=== PATIENT | female | born 1945 | race Caucasian/White ===

== ENCOUNTER 2017-08-22 23:39 | Inpatient (IN) | payer MEDICARE, MEDICAID ==
[2017-08-23] MEDS ORDERED: methylPREDNISolone Sod Succ/PF 125 MG/2 ML VIAL ONE
[2017-08-23] MEDS ORDERED: Water For Inject, Bacteriostat 30 ML ONE
[2017-08-23 00:13] LABS: CO2 Tension 50.6 mmHg (35.0-45.0); pH, Arterial 7.31 (7.35-7.45)
[2017-08-23 00:14] LABS: Base Excess (BEa) -1.7 mEq/L (0 (+/-) 2.5); Hematocrit-ABG 38.2 % (36.0-47.0); Hemoglobin (Hb) 11.4 g/dL (12.0-16.0)
[2017-08-23 00:15] LABS: Analyzer IN Cardio ER; Calcium, Ionized 1.2 mmol/L (1.12-1.30); Puncture Site RBA
[2017-08-23 00:29] LABS: Band 16 % (5-11); Hemoglobin 11.3 g/dL (12.0-16.0); Lymphocytes 13 % (21-51); MDiff Complete? YES; Mean Corpuscular HGB CONC 30.8 g/dL (32.0-36.0); Mean Corpuscular Hemoglobin 29.2 pg (27.0-31.0); Mean Corpuscular Volume 94.8 fl (81.0-99.0); Mean Platelet Volume 7.2 fL (7.4-10.4); Monocytes 3 % (0-10); Neutrophil 68 % (42-75); PLT Morphology Comment Appears Adequate; Platelet Count 447 thou/uL (130-400); RBC Distribution Width 13.9 % (11.5-14.5); Red Blood Cell (RBC) Count 3.88 mill/uL (4.20-5.40); White Blood Cell (WBC) Count 21.5 thou/uL (4.8-10.8)
[2017-08-23 00:32] LABS: ALT (SGPT) 12 U/L (8-55); AST (SGOT) 19 U/L (5-34); Albumin 3.8 g/dL (3.4-4.8); Alkaline Phosphatase 179 U/L (40-150); Anion Gap 15 mmol/L (10-20); BUN (Urea Nitrogen) 23 mg/dL (9.8-20.1); Bilirubin, Total 0.4 mg/dL (0.2-1.2); CK (CPK) 28 U/L (29-168); Calc. Creatinine Clearance 0 mL/min (70-130); Calcium 9.2 mg/dL (7.8-10.44); Carbon Dioxide 24 mmol/L (23-31); Chloride 109 mmol/L (98-107); Estimated GFR-MDRD 45; Globulin 4.4 g/dL (2.4-3.5); Glucose 154 mg/dL (80-115); Potassium 4.3 mmol/L (3.5-5.1); Protein, Total 8.2 g/dL (6.0-8.3); Sodium 144 mmol/L (136-145)
[2017-08-23 00:37] LABS: CKMB 0.8 ng/mL (0-6.6)
[2017-08-23] MEDS ORDERED: Albuterol Sulfate 2.5 mg/3 ml Neb NEB PRN (01:00)
[2017-08-23] MEDS ORDERED: Milk Of Magnesia 30 ML UDCUP PO PRN (01:05)
[2017-08-23] MEDS ORDERED: Azithromycin 500 MG in Sodium Chloride 0.9% 250 ML 250 ML IVPB SCH (01:15)
[2017-08-23] MEDS ORDERED: cefTRIAXone\\ROCEPHIN 2 GM in Sodium Chloride 0.9% 100 ML IVPB SCH (01:15)
--- NOTE | 2017-08-23 02:23 | HP ---
PRIMARY CARE PHYSICIAN: Dr. Frey. PRESENTING COMPLAINT: Shortness of breath. HISTORY OF PRESENT ILLNESS: Ms. King Larsen is a 72-year-old female with a past medical history of diastolic congestive heart failure, chronic dyspnea on home oxygen, morbid obesity, hyperlipidemia. She presented to the hospital with 2-day history of shortness of breath and cough productive of whitish sputum. It is unsure if she had a fever, but reports no chills. There is no history of chest pain, palpitation. She has been off all her medications for the past month due to transportation issues. She has also not been using her home oxygen as prescribed. She stated that she has weaned herself off to using it nightly, although has not used it for some time now. There is no history of nausea, vomiting, chest pain, palpitation, diarrhea. She has no abdominal or urinary symptoms. She was found to be saturating at 55% oxygen on room air in the emergency room. She was immediately placed on BiPAP. Lab showed leukocytosis of 21,500. Chemistry showed BUN/creatinine of 23/1.9 seems to be patient's baseline. Troponin was 0.010. BNP was 102.8. ABG showed pH of 7.31 with pCO2 of 50.6 and pO2 of 150 on BiPAP. Blood cultures were taken and patient was started on IV ceftriaxone and azithromycin, where after chest x-ray showed infiltrates in the long. PAST MEDICAL HISTORY: Diastolic heart failure, chronic dyspnea, morbid obesity, hyperlipidemia. PAST SURGICAL HISTORY: 1. Status post hysterectomy. 2. Status post hernia repair. ALLERGIES: None. FAMILY HISTORY: Reviewed and noncontributory. SOCIAL HISTORY: Does not drink alcohol, smoke cigarettes, or use illicit drugs. HOME MEDICATIONS: Reviewed and ordered. REVIEW OF SYSTEMS: Constitutional: Negative. Skin: Negative. HEENT: Negative. Cardiovascular: Negative. Respiratory: Shortness of breath, wheezing, cough. Gastrointestinal: Negative. : Negative. Musculoskeletal: Negative. Neurologic: Negative. Psychiatric: Negative. Allergy/immunology: Negative. PHYSICAL EXAMINATION: VITAL SIGNS: Within normal limits. GENERAL: Not in acute distress on BiPAP. HEENT: PERRLA, EOMI. Normocephalic, atraumatic. Not pale, anicteric. Moist mucous membranes. NECK: Supple with no JVD. Has full range of movements. RESPIRATORY: Coarse breath sounds bilaterally with mild wheezing. No crackles. EXTREMITIES: Warm, dry, well perfused. Poor nail care, with significant nail overgrowth. ABDOMEN: Nontender, nondistended. Bowel sounds positive, soft. No hepatomegaly. NEUROLOGIC: Alert and awake, oriented to time, place, and person. No focal deficits. CARDIAC: S1 and S2 only. No murmurs, rubs or gallops. Regular rate and rhythm. PSYCHIATRIC: Normal mood and affect. SKIN: Warm, dry, well-perfused. LABORATORY DATA: As stated in HPI. IMAGING: As stated in the HPI. EKG showed no signs of acute ischemia. ASSESSMENT AND PLAN: 1. Acute on chronic respiratory failure, this is likely due to underlying pneumonia. She has been started on IV ceftriaxone and azithromycin. Blood cultures have been taken. We will continue on BiPAP and eventually transitioned to her home nasal cannula. We will also consult Pulmonary Service. Follow up on blood cultures. We will also start on IV Solu-Medrol and nebulizers. 2. Pneumonia as above. 3. Chronic diastolic heart failure. She is not in acute exacerbation, even though she has not taken her medications for a month, we will resume her home regimen. 4. Hypertension. Blood pressure relatively well controlled. Blood pressure 152/95 in the emergency room. We will start home medications gradually. 5. Hyperlipidemia. We will resume home medications. 6. Chronic kidney disease. Patient seems to be at her baseline, we will monitor creatinine closely. 7. Deep venous thrombosis prophylaxis, subcutaneous heparin. 8. Code status was FULL CODE. MTDD
[2017-08-23 03:54] VITALS: BMI 49.2
[2017-08-23 04:07] LABS: #Basophils 0.2 thou/uL (0.0-0.2); #Lymphocytes 0.4 thou/uL (1.20-3.40); #Monocytes 0.3 thou/uL (0.11-0.59); #Neutrophils 17.2 thou/uL (1.40-6.50); %Basophils 1.2 % (0.0-1.0); %Eosinophils 0.2 % (0.0-10.0); %Lymphocytes 2.2 % (21.0-51.0); %Monocytes 1.6 % (0.0-10.0); %Neutrophils 94.9 % (42.0-75.0); Hemoglobin 10.8 g/dL (12.0-16.0); Mean Corpuscular HGB CONC 31.2 g/dL (32.0-36.0); Mean Corpuscular Hemoglobin 29.6 pg (27.0-31.0); Mean Corpuscular Volume 95.2 fl (81.0-99.0); Mean Platelet Volume 7.2 fL (7.4-10.4); Platelet Count 388 thou/uL (130-400); RBC Distribution Width 13.7 % (11.5-14.5); Red Blood Cell (RBC) Count 3.64 mill/uL (4.20-5.40); White Blood Cell (WBC) Count 18.1 thou/uL (4.8-10.8)
[2017-08-23 04:27] LABS: Lactic Acid 0.7 mmol/L (0.5-2.2)
[2017-08-23 04:31] LABS: ALT (SGPT) 12 U/L (8-55); AST (SGOT) 17 U/L (5-34); Albumin 3.4 g/dL (3.4-4.8); Alkaline Phosphatase 155 U/L (40-150); Anion Gap 13 mmol/L (10-20); BUN (Urea Nitrogen) 25 mg/dL (9.8-20.1); Bilirubin, Total 0.3 mg/dL (0.2-1.2); Calc. Creatinine Clearance 93 mL/min (70-130); Calcium 8.8 mg/dL (7.8-10.44); Carbon Dioxide 23 mmol/L (23-31); Chloride 110 mmol/L (98-107); Estimated GFR-MDRD 52; Globulin 4.1 g/dL (2.4-3.5); Glucose 155 mg/dL (80-115); Potassium 4.6 mmol/L (3.5-5.1); Protein, Total 7.5 g/dL (6.0-8.3); Sodium 141 mmol/L (136-145)
--- NOTE | 2017-08-23 07:46 | RAD ---
AP VIEW CHEST: Date: 08/22/17 HISTORY: Dyspnea. FINDINGS: Comparison made to previous exam from 12/31/16. AP view of chest demonstrates EKG leads over the chest. Mild cardiomegaly is seen. Pulmonary vascular congestion seen. No evidence of effusions, pneumonia, or pneumothorax seen. IMPRESSION: Cardiomegaly and mild pulmonary vascular congestion. POS: [facility]
[2017-08-23] MEDS: Docusate 100 MG CAP PO SCH ×2 (08:40→21:42)
[2017-08-23] MEDS: Famotidine 20 MG TAB PO SCH ×2 (08:40→21:42)
[2017-08-23] MEDS ORDERED: FLU VACC TS2017-18 (>65YR) 0.5 ML SYRINGE IM ONE (09:00)
[2017-08-23] MEDS ORDERED: Enoxaparin Sodium 30 MG/0.3 ML SYRINGE SC SCH ×2 (09:00→09:32)
--- NOTE | 2017-08-23 10:12 | CON ---
DATE OF CONSULTATION: 08/23/2017 HISTORY: Ms. Richter is a morbidly obese 72-year-old female from [facility] who comes with a 10 day history of increasing shortness of breath and cough. She is unable to give addit ional information. Denied any chest pain. She was here in December of last year with some rib pain. She has a diagnosis of congestive heart failure. She just got a new primary care physician. She is severely disabled, uses a walker to barely walk 20 feet. She had a last ejection fraction down to 60% and findings consistent with diastolic dysfunction. PAST MEDICAL HISTORY: Morbid obesity, anemia, chronic dyspnea. Diastolic dysfunction. PAST SURGICAL HISTORY: Hysterectomy, hernia repair. TOBACCO: None. ALCOHOL: None. MEDICATIONS: The list of medicine from home; Lasix 20, iron, Lipitor 20, aspirin 81, amlodipine 5. ALLERGIES: None. SOCIAL/FAMILY HISTORY: She worked in [employer]. REVIEW OF SYSTEMS: Ten point negative. Please note old x-ray reports, old charts were reviewed by me. Since admission now she is started on Zithromax, ceftriaxone, Lovenox, neb treatments and steroids. PHYSICAL EXAMINATION: VITAL SIGNS: Sats are 100% on 2 liters. She was on BiPAP earlier, temperature 99, pulse 67, blood p ressure 120/42. CHEST: Chest revealed extensive rhonchi and crackles. CARDIAC: Normal S1, S2, no gallops. ABDOMEN: Soft, no masses. LABORATORY DATA: White count 18,000, H&H 10 and 34, platelet count 388, pO2 150, pCO2 50.73 on a BiP AP. Creatinine is normal. BUN is normal. Electrolytes are normal. BNP is 102. X-ray was surprisingly normal with slight cephalization. IMPRESSION: 1. Chronic obstructive pulmonary disease exacerbation. 2. Bronchitis. 3. Nonsmoker. 4. Diastolic dysfunction. 5. Morbid obesity. 6. Sleep apnea. PLAN: Continue antibiotics, nebulizer treatments, steroids, diuretics. Echo is being ordered. Deep venous thrombosis prophylaxis, early ambulation. I will follow. Consultation note, 70 minutes of which 50% spent in the direct patient care.
--- NOTE | 2017-08-23 11:25 | PQF ---
DATE: 08-23-17 ATTN: DR. DOLORES PARKER Please exercise your independent, professional judgment in responding to the clarification form. Clinical indicators are provided on the bottom of this form for your review Please check appropriate box(es): [ ] Sepsis due to: (Pna, etc.) [ x ] Severe sepsis with acute organ dysfunction of: ___acute on chronic hypoexmic resp failure, due to pulm infection, cannot exclude pna yet (Examples: respiratory failure, other) [ ] Other diagnosis [ ] Unable to determine In addition, please specify: Present on Admission (POA): [ x ] Yes [ ] No [ ] Unable to determine For continuity of documentation, please document condition throughout progress notes and discharge summary. Thank You. CLINICAL INDICATORS - SIGNS / SYMPTOMS / LABS H&P: ACUTE ON CHRONIC RESPIRATORY FAILURE, THIS IS LIKELY DUE TO UNDERLYING PNEUMONIA WBC: 08-22-17: 21.5 08-23-17: 18.1 BANDS: 08-22-17: 16 TEMP: 08-23-17: 100.4, 100.4, 99.7 RR: 08-23-17: 22, 22, 21 RISK FACTORS: H&P: ACUTE ON CHRONIC RESPIRATORY FAILURE, THIS IS LIKELY DUE TO UNDERLYING PNEUMONIA ADVANCED AGE TREATMENTS: (MAR) ROCEPHIN IV, ZITHROMAX (This form is maintained as a part of the permanent medical record) 2014 [employer]. All Rights Reserved ROZINA [email or web address] Office: [phone] [facility] CENTERIvory
[2017-08-23] MEDS: Acetaminophen 325 MG TAB PO PRN (19:18)
[2017-08-24 04:39] LABS: #Lymphocytes 1.3 thou/uL (1.20-3.40); #Monocytes 0.2 thou/uL (0.11-0.59); #Neutrophils 9.7 thou/uL (1.40-6.50); %Basophils 0.2 % (0.0-1.0); %Eosinophils 0.1 % (0.0-10.0); %Lymphocytes 11.3 % (21.0-51.0); %Monocytes 2.1 % (0.0-10.0); %Neutrophils 86.2 % (42.0-75.0); Hemoglobin 9.7 g/dL (12.0-16.0); Mean Corpuscular HGB CONC 31.2 g/dL (32.0-36.0); Mean Corpuscular Hemoglobin 29.8 pg (27.0-31.0); Mean Corpuscular Volume 95.7 fl (81.0-99.0); Mean Platelet Volume 7.6 fL (7.4-10.4); Platelet Count 371 thou/uL (130-400); RBC Distribution Width 13.5 % (11.5-14.5); Red Blood Cell (RBC) Count 3.24 mill/uL (4.20-5.40); White Blood Cell (WBC) Count 11.2 thou/uL (4.8-10.8)
[2017-08-24 04:54] LABS: Anion Gap 10 mmol/L (10-20); BUN (Urea Nitrogen) 31 mg/dL (9.8-20.1); Calc. Creatinine Clearance 100 mL/min (70-130); Calcium 8.9 mg/dL (7.8-10.44); Carbon Dioxide 27 mmol/L (23-31); Chloride 110 mmol/L (98-107); Estimated GFR-MDRD 56; Glucose 147 mg/dL (80-115); Magnesium 2.3 mg/dL (1.6-2.6); Potassium 4.6 mmol/L (3.5-5.1); Sodium 142 mmol/L (136-145)
[2017-08-24] MEDS ORDERED: cefTRIAXone\\ROCEPHIN 1 GM in Sterile Water 10 ML SLOW IVP SCH (08:00)
[2017-08-24] MEDS: Famotidine 20 MG TAB PO SCH ×2 (08:41→21:39)
[2017-08-24] MEDS: Docusate 100 MG CAP PO SCH ×2 (08:41→21:39)
[2017-08-24] MEDS: Furosemide 40 MG TAB PO SCH (08:41)
--- NOTE | 2017-08-24 08:52 | PRG ---
DATE OF SERVICE: 08/24/2017 This morning she is less short of breath. PHYSICAL EXAMINATION: VITAL SIGNS: Blood pressure 132/50, sats 90%, temperature 98, respirations 18. I's and O's 1730 in, 125 out. CHEST: Chest revealed bilateral rhonchi. CARDIAC: Normal S1, S2. ABDOMEN: Soft, no masses. IMPRESSION: 1. Morbid obesity. 2. Sleep apnea. 3. Normal ejection fraction. White count 11,000, H&H 9 and 31, platelet count 371. PLAN: Continue aggressive PT, neb treatments, antibiotics. May consider deescalating antibiotics to p.o. since all cultures are negative. I will follow.
[2017-08-24] MEDS ORDERED: Azithromycin 500 MG in Sodium Chloride 0.9% 250 ML 250 ML IVPB SCH (09:00)
--- NOTE | 2017-08-24 12:41 | PDOC.PN ---
- Subjective Encounter Start Date: 08/24/17 Encounter Start Time: 11:40 -: old records requested/rev PT seen and exmained, chart reviewed in its entirety. Thid id my first visit with this patient Admitted for SOB, hypoxia. Pt feels breathing is a little better, still with sig SILVERMAN. no F/C, +cough, nonproductive. no n/v/d/c, too po 10 point ROS performed and neg for all systems except as per HPI - Objective MAR Reviewed: Yes Vital Signs & Weight: Vital Signs (12 hours) Temp Pulse Resp BP Pulse Ox 08/24/17 11:05 98.2 F 70 22 H 136/55 L 100 08/24/17 09:54 65 22 H 100 08/24/17 07:53 96.8 F L 61 18 94 L 08/24/17 07:44 96.8 F L 61 18 132/50 L 96 08/24/17 06:23 59 L 08/24/17 06:21 56 L 21 H 100 08/24/17 03:51 97.8 F 53 L 19 133/50 L 98 08/24/17 01:06 98 08/24/17 01:05 58 L Weight Weight 259 lb 8 oz I&O: 08/23/17 08/24/17 08/25/17 06:59 06:59 06:59 Intake Total 550 1730 Output Total 110 1250 Balance 440 480 Result Diagrams: 08/24/17 03:33 08/24/17 03:33 Radiology Reviewed by me: Yes EKG Reviewed by me: Yes Phys Exam - Physical Examination Constitutional: NAD HEENT: PERRLA, moist MMs, sclera anicteric, oral pharynx no lesions teeth in poor repair Neck: no nodes, no JVD, supple, full ROM prolonged, exp phase, low pitched wheezes, coarse rales diffuse Cardiovascular: RRR 3/g HSM apex and RLSB Gastrointestinal: soft, non-tender, positive bowel sounds cannot palpate internal organs due to habitus Musculoskeletal: edema present Neurological: non-focal, normal sensation, moves all 4 limbs Lymphatic: no nodes Psychiatric: normal affect, A&O x 3 Skin: no rash, normal turgor, cap refill <2 seconds Dx/Plan (1) Valvular heart disease Status: Acute Comment: mof MR, mod to severe TR. recheck BNP in AM, up a liter (2) Acute on chronic respiratory failure with hypoxemia Code(s): J96.21 - ACUTE AND CHRONIC RESPIRATORY FAILURE WITH HYPOXIA Status: Acute Comment: BiPAP QHS for DAREK. wean as tolerated NC during the day. transfer to tele (3) Chronic diastolic (congestive) heart failure Code(s): I50.32 - CHRONIC DIASTOLIC (CONGESTIVE) HEART FAILURE Status: Chronic Comment: AM BNP, watch I/O (4) HTN (hypertension) Code(s): I10 - ESSENTIAL (PRIMARY) HYPERTENSION Status: Chronic Qualifiers: Hypertension type: essential hypertension (5) Morbid obesity with BMI of 50.0-59.9, adult Code(s): E66.01 - MORBID (SEVERE) OBESITY DUE TO EXCESS CALORIES; Z68.43 - BODY MASS INDEX (BMI) 50-59.9 , ADULT Status: Chronic (6) Physical deconditioning Code(s): R53.81 - OTHER MALAISE Status: Chronic - Plan cont current plan of care, continue antibiotics, PT/OT, respiratory therapy, out of bed/ambulate * . nebs, steroids, change to po levoflox. acting more like COPD or cardiac asthma. Pulm following
[2017-08-24] MEDS: Acetaminophen 325 MG TAB PO PRN (16:58)
[2017-08-25 05:21] LABS: #Lymphocytes 0.8 thou/uL (1.20-3.40); #Monocytes 0.5 thou/uL (0.11-0.59); #Neutrophils 13.8 thou/uL (1.40-6.50); %Eosinophils 0.1 % (0.0-10.0); %Lymphocytes 5.5 % (21.0-51.0); %Monocytes 3.1 % (0.0-10.0); %Neutrophils 91.3 % (42.0-75.0); Hemoglobin 10.4 g/dL (12.0-16.0); Mean Corpuscular HGB CONC 30.1 g/dL (32.0-36.0); Mean Corpuscular Hemoglobin 29.4 pg (27.0-31.0); Platelet Count 379 thou/uL (130-400); RBC Distribution Width 13.7 % (11.5-14.5); Red Blood Cell (RBC) Count 3.53 mill/uL (4.20-5.40); White Blood Cell (WBC) Count 15.2 thou/uL (4.8-10.8)
[2017-08-25 05:50] LABS: ALT (SGPT) 11 U/L (8-55); AST (SGOT) 15 U/L (5-34); Albumin 3.2 g/dL (3.4-4.8); Alkaline Phosphatase 123 U/L (40-150); Anion Gap 14 mmol/L (10-20); BUN (Urea Nitrogen) 41 mg/dL (9.8-20.1); Bilirubin, Total 0.2 mg/dL (0.2-1.2); Calc. Creatinine Clearance 84 mL/min (70-130); Calcium 8.9 mg/dL (7.8-10.44); Carbon Dioxide 21 mmol/L (23-31); Chloride 110 mmol/L (98-107); Estimated GFR-MDRD 46; Globulin 3.9 g/dL (2.4-3.5); Glucose 139 mg/dL (80-115); Magnesium 2.3 mg/dL (1.6-2.6); Potassium 4.8 mmol/L (3.5-5.1); Protein, Total 7.1 g/dL (6.0-8.3); Sodium 140 mmol/L (136-145)
[2017-08-25] MEDS: Furosemide 40 MG TAB PO SCH (06:06)
--- NOTE | 2017-08-25 09:30 | RAD ---
CHEST 1 VIEW: Date: 08/25/17 HISTORY: Chest pain. Dyspnea. CHF. COMPARISON: 08/22/17. FINDINGS: Cardiac silhouette is magnified and enlarged. Pulmonary vasculature is slightly engorged. Patient is rotated rightward. No lobar consolidation or evidence of pneumothorax. director sales leads overlie the chest. IMPRESSION: Cardiomegaly with mild pulmonary vascular congestion. POS: [facility]
[2017-08-25] MEDS: Enoxaparin Sodium 40 MG/0.4 ML SYRINGE SC SCH (09:40)
[2017-08-25] MEDS: Docusate 100 MG CAP PO SCH ×2 (09:40→21:52)
[2017-08-25] MEDS: Famotidine 20 MG TAB PO SCH ×2 (09:40→21:52)
[2017-08-25] MEDS ORDERED: Magnesium 2 GM/NS 0.9% 100 ML 2 GM in Premix Bag 1 BAG IVPB SCH (10:00)
--- NOTE | 2017-08-25 12:04 | PRG ---
DATE OF SERVICE: 08/25/2017 Ms. Richter continues to have significant difficulty breathing. X-ray shows some right hilar fullness. She had a CAT scan done about a year ago which was otherwise unremarkable. LABORATORY: Creatinine 1.6. White count 5000, H&H 10 and 35, platelet count is normal. PHYSICAL EXAMINATION: CHEST: Reveals diffuse wheezing. CARDIAC: Sinus tachycardia. ABDOMEN: Soft, no mass. VITAL SIGNS: Sats are 90% on 2 liters, temperature 98, blood pressure 121/73. IMPRESSION: 1. Pneumonia/mass r lung. 2. Bronchitis. 3. Sleep apnea. PLAN: Continue steroids, nebs treatments. I added Dulera. Consider CT of the chest. I will follow. RICHELLED
[2017-08-25] MEDS ORDERED: ISOVUE-370 76%-LOCM 1 ML ONE (13:47)
--- NOTE | 2017-08-25 15:39 | CT ---
CONTRAST ENHANCED CT IMAGES OF CHEST: 08/25/17 HISTORY: Shortness of breath. Evaluate for right lung mass. Contrast enhanced CT of the chest was performed. Mitral annular calcifications seen. No significant evidence of mediastinal, axillary or hilar lymphadenopathy is seen. No evidence of pulmonary parenchymal lesions seen. There does appears to be some bilateral pleural fa t noted. This is unchanged since the previous CT from December 2016. The previously noted ground glass opacities; however, have resolved for the most part or less promine nt in the lung parenchyma. Extensive calcified gallstones are noted. There is a cortical cyst in the left kidney. IMPRESSION: Persistent but decreased ground glass air space opacities. No evidence of lung parenchymal masses see n. POS: [facility]
[2017-08-25] MEDS: Acetaminophen 325 MG TAB PO PRN (16:20)
[2017-08-25] MEDS: Mometasone/Formoterol 120 PUFF INHALER INH SCH (19:14)
--- NOTE | 2017-08-25 22:17 | PDOC.PN ---
- Subjective Encounter Start Date: 08/25/17 Encounter Start Time: 10:30 Pt breathing a little better. did not weat BiPAP overnight due to comfort issues. No f/c, no N/V/D/C, no CP or SOB, no sputum production or hemoptysis 10 point ROS performed and neg for all systems except as per HPI - Objective MAR Reviewed: Yes Vital Signs & Weight: Vital Signs (12 hours) Temp Pulse Resp BP Pulse Ox Pulse Ox Pulse Ox 08/25/17 19:17 96 08/25/17 19:16 96 08/25/17 19:14 96 08/25/17 15:25 98.3 F 102 H 18 161/65 H 96 08/25/17 15:14 97 96 08/25/17 14:32 82 20 08/25/17 10:37 73 18 Weight Weight 261 lb 7 oz I&O: 08/24/17 08/25/17 08/26/17 06:59 06:59 06:59 Intake Total 1730 862 Output Total 1250 700 Balance 480 162 Result Diagrams: 08/26/17 04:58 08/26/17 04:58 Radiology Reviewed by me: Yes Phys Exam - Physical Examination Constitutional: NAD HEENT: PERRLA, moist MMs, sclera anicteric, oral pharynx no lesions Neck: no nodes, no JVD, supple, full ROM less wheezing, diffuse fine rales, better air movement Cardiovascular: RRR, no significant murmur, no rub Gastrointestinal: soft, non-tender, positive bowel sounds Musculoskeletal: edema present Neurological: non-focal, normal sensation, moves all 4 limbs Lymphatic: no nodes Psychiatric: normal affect, A&O x 3 Skin: no rash, normal turgor, cap refill <2 seconds Dx/Plan (1) Valvular heart disease Status: Chronic Comment: mod MR, mod to severe TR. (2) Acute on chronic respiratory failure with hypoxemia Code(s): J96.21 - ACUTE AND CHRONIC RESPIRATORY FAILURE WITH HYPOXIA Status: Acute Comment: BiPAP QHS for DAREK. wean as tolerated NC during the day. transferred to [facility], pul following. CT with improvement in GGO. Abx, nebs, steroids (3) Chronic diastolic (congestive) heart failure Code(s): I50.32 - CHRONIC DIASTOLIC (CONGESTIVE) HEART FAILURE Status: Chronic Comment: watch I/O (4) HTN (hypertension) Code(s): I10 - ESSENTIAL (PRIMARY) HYPERTENSION Status: Chronic Qualifiers: Hypertension type: essential hypertension Qualified Code(s): I10 - Essential (primary) hypertension (5) Morbid obesity with BMI of 50.0-59.9, adult Code(s): E66.01 - MORBID (SEVERE) OBESITY DUE TO EXCESS CALORIES; Z68.43 - BODY MASS INDEX (BMI) 50-59.9 , ADULT Status: Chronic (6) Physical deconditioning Code(s): R53.81 - OTHER MALAISE Status: Chronic - Plan cont current plan of care, continue antibiotics, PT/OT, respiratory therapy, out of bed/ambulate * .
[2017-08-26 05:39] LABS: #Lymphocytes 1.1 thou/uL (1.20-3.40); #Monocytes 0.3 thou/uL (0.11-0.59); #Neutrophils 7.7 thou/uL (1.40-6.50); %Basophils 0.2 % (0.0-1.0); %Eosinophils 0.1 % (0.0-10.0); %Monocytes 3.6 % (0.0-10.0); %Neutrophils 84.2 % (42.0-75.0); Hemoglobin 10.8 g/dL (12.0-16.0); Mean Corpuscular HGB CONC 31.4 g/dL (32.0-36.0); Mean Corpuscular Hemoglobin 29.7 pg (27.0-31.0); Mean Corpuscular Volume 94.4 fl (81.0-99.0); Mean Platelet Volume 7.8 fL (7.4-10.4); Platelet Count 369 thou/uL (130-400); RBC Distribution Width 13.7 % (11.5-14.5); Red Blood Cell (RBC) Count 3.65 mill/uL (4.20-5.40); White Blood Cell (WBC) Count 9.2 thou/uL (4.8-10.8)
[2017-08-26 05:58] LABS: ALT (SGPT) 12 U/L (8-55); AST (SGOT) 16 U/L (5-34); Albumin 3.4 g/dL (3.4-4.8); Alkaline Phosphatase 107 U/L (40-150); Anion Gap 13 mmol/L (10-20); BUN (Urea Nitrogen) 43 mg/dL (9.8-20.1); Bilirubin, Total 0.3 mg/dL (0.2-1.2); Calc. Creatinine Clearance 74 mL/min (70-130); Calcium 9.1 mg/dL (7.8-10.44); Carbon Dioxide 27 mmol/L (23-31); Chloride 106 mmol/L (98-107); Estimated GFR-MDRD 41; Globulin 3.8 g/dL (2.4-3.5); Glucose 145 mg/dL (80-115); Magnesium 3.2 mg/dL (1.6-2.6); Potassium 4.9 mmol/L (3.5-5.1); Protein, Total 7.2 g/dL (6.0-8.3); Sodium 141 mmol/L (136-145)
[2017-08-26] MEDS: Mometasone/Formoterol 120 PUFF INHALER INH SCH ×2 (07:02→19:46)
[2017-08-26] MEDS ORDERED: Sodium Chloride 0.9% 1,000 ML IV SCH (07:45)
[2017-08-26] MEDS: Furosemide 40 MG TAB PO SCH (08:28)
[2017-08-26] MEDS: Enoxaparin Sodium 40 MG/0.4 ML SYRINGE SC SCH (08:29)
[2017-08-26] MEDS: Famotidine 20 MG TAB PO SCH ×2 (08:29→20:58)
[2017-08-26] MEDS: Docusate 100 MG CAP PO SCH ×2 (08:49→20:58)
--- NOTE | 2017-08-26 13:14 | PRG ---
DATE OF SERVICE: 08/26/2017 OBJECTIVE: Sats are 92% on 2 liters, respiration 20, temperature 98, blood pressure 129/61, she says she is better. CHEST: Decreased breath sounds, minimal wheezing. CARDIAC: Normal S1, S2. No gallops. ABDOMEN: Soft, no masses. LABORATORY DATA: White count 9000, H and H 10 and 34, platelet count is 269. Creatinine 1.29. CT o f chest did not show any obvious pneumonia. ASSESSMENT AND PLAN: Chronic obstructive pulmonary disease exacerbation, bronchitis, possibly pneumo anabel. If she is better, switch her to oral prednisone, neb treatments, eventually placement.
--- NOTE | 2017-08-26 14:03 | PDOC.PN ---
- Subjective Encounter Start Date: 08/26/17 Encounter Start Time: 10:50 breatihng better, no new compalints. - Objective MAR Reviewed: Yes Vital Signs & Weight: Vital Signs (12 hours) Temp Pulse Resp BP Pulse Ox 08/26/17 11:52 99.1 F 80 20 130/57 L 98 08/26/17 11:04 76 20 08/26/17 07:54 99.1 F 80 20 93 L 08/26/17 07:52 98.3 F 71 20 140/64 92 L 08/26/17 07:02 88 20 98 08/26/17 06:41 98 08/26/17 06:39 88 20 98 08/26/17 05:55 97 08/26/17 04:00 97.5 F L 60 20 129/61 97 Weight Weight 253 lb 14.4 oz I&O: 08/25/17 08/26/17 08/27/17 06:59 06:59 06:59 Intake Total 862 200 Output Total 700 200 Balance 162 0 Result Diagrams: 08/26/17 04:58 08/26/17 04:58 Radiology Reviewed by me: Yes Phys Exam - Physical Examination Constitutional: NAD HEENT: PERRLA, moist MMs, sclera anicteric, oral pharynx no lesions Neck: no nodes, no JVD, supple, full ROM Respiratory: no rhonchi improved wheezing, slight prolonged expiration, Cardiovascular: RRR, no significant murmur, no rub Gastrointestinal: soft, non-tender, no distention, positive bowel sounds Musculoskeletal: pulses present, edema present Neurological: non-focal, normal sensation, moves all 4 limbs Lymphatic: no nodes Psychiatric: normal affect, A&O x 3 Skin: no rash, normal turgor, cap refill <2 seconds Dx/Plan (1) Valvular heart disease Status: Chronic Comment: mod MR, mod to severe TR. (2) Acute on chronic respiratory failure with hypoxemia Code(s): J96.21 - ACUTE AND CHRONIC RESPIRATORY FAILURE WITH HYPOXIA Status: Acute Comment: BiPAP QHS for DAREK. wean as tolerated NC during the day. transferred to [facility], pul following. CT with improvement in GGO. Abx, nebs, steroids (3) Chronic diastolic (congestive) heart failure Code(s): I50.32 - CHRONIC DIASTOLIC (CONGESTIVE) HEART FAILURE Status: Chronic Comment: watch I/O (4) HTN (hypertension) Code(s): I10 - ESSENTIAL (PRIMARY) HYPERTENSION Status: Chronic Qualifiers: Hypertension type: essential hypertension Qualified Code(s): I10 - Essential (primary) hypertension (5) Morbid obesity with BMI of 50.0-59.9, adult Code(s): E66.01 - MORBID (SEVERE) OBESITY DUE TO EXCESS CALORIES; Z68.43 - BODY MASS INDEX (BMI) 50-59.9 , ADULT Status: Chronic (6) Physical deconditioning Code(s): R53.81 - OTHER MALAISE Status: Chronic - Plan * .
--- NOTE | 2017-08-26 14:50 | EKG ---
Test Reason : Blood Pressure : / mmHG Vent. Rate : 090 BPM Atrial Rate : 258 BPM P-R Int : 000 ms QRS Dur : 086 ms QT Int : 324 ms P-R-T Axes : 060 040 036 degrees QTc Int : 396 ms Normal sinus rhythm No ST/T wave changes Normal axis Confirmed by RAMÓN LEIVA ([id number]), subeditor SUSU ALATORRE ([id number]) on 08/26/2017 2:49:35 PM Referred By: Confirmed By:RAMÓN LEIVA
[2017-08-27 05:39] LABS: Anion Gap 12 mmol/L (10-20); BUN (Urea Nitrogen) 42 mg/dL (9.8-20.1); Calc. Creatinine Clearance 78 mL/min (70-130); Calcium 8.7 mg/dL (7.8-10.44); Carbon Dioxide 28 mmol/L (23-31); Chloride 106 mmol/L (98-107); Estimated GFR-MDRD 44; Glucose 100 mg/dL (80-115); Magnesium 2.6 mg/dL (1.6-2.6); Potassium 3.8 mmol/L (3.5-5.1); Sodium 142 mmol/L (136-145)
[2017-08-27] MEDS: Mometasone/Formoterol 120 PUFF INHALER INH SCH ×2 (06:52→19:47)
[2017-08-27] MEDS: Enoxaparin Sodium 40 MG/0.4 ML SYRINGE SC SCH (08:05)
[2017-08-27] MEDS: Docusate 100 MG CAP PO SCH ×2 (08:05→20:39)
[2017-08-27] MEDS: Famotidine 20 MG TAB PO SCH ×2 (08:05→20:39)
[2017-08-27] MEDS: Furosemide 40 MG TAB PO SCH (08:05)
[2017-08-27] MEDS: predniSONE 20 MG TAB PO SCH (08:05)
--- NOTE | 2017-08-27 12:44 | PDOC.PN ---
- Subjective Encounter Start Date: 08/27/17 Encounter Start Time: 11:25 pT STANDING IN HER ROOM ALONE. BREATHING IS SOMEHWAT BETTER, ON BASELINE AMOUNT OF HOME O2. sTILL WITH DANICA ABOVE BASELINE. AFEBRILE, NO N/V/D/C, NO CP OR SOB 10 POINT ROS PERFORMED AND NEG FOR ALL SYSTEMS EXCEPT ABOVE - Objective MAR Reviewed: Yes Vital Signs & Weight: Vital Signs (12 hours) Temp Pulse Resp BP Pulse Ox 08/27/17 11:41 98.3 F 68 16 158/70 H 94 L 08/27/17 10:31 73 16 08/27/17 07:28 97.8 F 80 20 95 08/27/17 07:25 97.8 F 80 20 130/82 95 08/27/17 06:52 76 12 08/27/17 06:44 99 08/27/17 06:41 76 16 08/27/17 04:55 97.5 F L 67 17 145/64 H 99 Weight Weight 251 lb 2 oz I&O: 08/26/17 08/27/17 08/28/17 06:59 06:59 06:59 Intake Total 200 1260 Output Total 200 975 Balance 0 285 Result Diagrams: 08/26/17 04:58 08/27/17 05:02 EKG Reviewed by me: Yes (TELEMETRY) Phys Exam - Physical Examination Constitutional: NAD severely obese HEENT: PERRLA, moist MMs, sclera anicteric, oral pharynx no lesions Neck: no nodes, no JVD, supple, full ROM Respiratory: no wheezing, no rhonchi coarse bilateral rales, slightly prolonged exp but no wheezing Cardiovascular: RRR, no significant murmur, no rub Gastrointestinal: soft, non-tender, no distention, positive bowel sounds Musculoskeletal: edema present Neurological: non-focal, normal sensation, moves all 4 limbs Lymphatic: no nodes Psychiatric: normal affect, A&O x 3 Skin: no rash, normal turgor, cap refill <2 seconds Dx/Plan (1) Valvular heart disease Status: Chronic Comment: mod MR, mod to severe TR. (2) Acute on chronic respiratory failure with hypoxemia Code(s): J96.21 - ACUTE AND CHRONIC RESPIRATORY FAILURE WITH HYPOXIA Status: Acute Comment: BiPAP QHS for DAREK. wean as tolerated NC during the day. transferred to tele, pulm following. CT with improvement in GGO. Abx, nebs, steroids. close to baseline i think. Home when okay with pulmonary (3) Chronic diastolic (congestive) heart failure Code(s): I50.32 - CHRONIC DIASTOLIC (CONGESTIVE) HEART FAILURE Status: Chronic Comment: watch I/O (4) HTN (hypertension) Code(s): I10 - ESSENTIAL (PRIMARY) HYPERTENSION Status: Chronic Qualifiers: Hypertension type: essential hypertension Qualified Code(s): I10 - Essential (primary) hypertension (5) Morbid obesity with BMI of 50.0-59.9, adult Code(s): E66.01 - MORBID (SEVERE) OBESITY DUE TO EXCESS CALORIES; Z68.43 - BODY MASS INDEX (BMI) 50-59.9 , ADULT Status: Chronic (6) Physical deconditioning Code(s): R53.81 - OTHER MALAISE Status: Chronic - Plan cont current plan of care, continue antibiotics, PT/OT, respiratory therapy, out of bed/ambulate, DVT proph w/lovenox * .
--- NOTE | 2017-08-27 18:12 | PRG ---
DATE OF SERVICE: 08/27/2017 SUBJECTIVE: Suzie Richter is better. She is still coughing. She is still rattling. OBJECTIVE: VITAL SIGNS: Sats are 98% on 2 liters, temperature 97, pulse rate of 20, blood pressure 130/80. CHEST: Extensive rhonchi. CARDIAC: Normal S1, S2, no gallops. LABORATORY DATA: Creatinine 1.2. ASSESSMENT: Chronic obstructive pulmonary disease exacerbation, bronchitis, severe deconditioning, o besity. Continue aggressive PT. PLAN: Hopefully, she can be discharged home in the next several days.
[2017-08-28] MEDS ORDERED: Albuterol Sulfate 2.5 mg/3 ml Neb NEB PRN (06:26)
[2017-08-28] MEDS ORDERED: Mometasone/Formoterol 120 PUFF INHALER INH SCH (06:30)
--- NOTE | 2017-08-28 09:37 | PRG ---
DATE OF SERVICE: 08/28/2017 Suzie Richter is much better, less short of breath, less wheezing. PHYSICAL EXAMINATION: VITAL SIGNS: Blood pressure is 165/69, sats are 96 on 2 liters, temperature 98, pulse 68. CHEST: Occasional wheeze. CARDIAC: Normal S1, S2. ABDOMEN: Soft, no masses. IMPRESSION: 1. Chronic obstructive pulmonary disease exacerbation. 2. Probably sleep apnea. 3. Severe deconditioning. PLAN: From a pulmonary standpoint of view she can be transferred out of the monitored bed. PT and s upportive care, eventually home. Follow with her primary care physician.
[2017-08-28] MEDS: Famotidine 20 MG TAB PO SCH ×3 (11:13→11:17)
[2017-08-28] MEDS: Docusate 100 MG CAP PO SCH (11:15)
[2017-08-28] MEDS: Furosemide 40 MG TAB PO SCH (11:15)
[2017-08-28] MEDS: predniSONE 20 MG TAB PO SCH (11:15)
[2017-08-28] MEDS: Enoxaparin Sodium 40 MG/0.4 ML SYRINGE SC SCH (11:16)
[2017-08-28 17:39] VITALS: BP 125/57; TEMP 98.1
[2017-08-28] MEDS ORDERED: Docusate 100 MG CAP PO SCH (21:00)
[2017-08-29] MEDS ORDERED: Furosemide 40 MG TAB PO SCH (07:30)
[2017-08-29] MEDS ORDERED: predniSONE 20 MG TAB PO SCH (08:00)
[2017-08-29] MEDS ORDERED: Enoxaparin Sodium 40 MG/0.4 ML SYRINGE SC SCH (09:00)
--- NOTE | 2017-08-29 10:20 | DIS ---
DATE OF ADMISSION: 08/23/2017 DATE OF DISCHARGE: 08/28/2017 DISCHARGE DIAGNOSES: 1. Acute on chronic hypoxemic respiratory failure. 2. Acute on chronic hypercapnic respiratory failure. 3. Acute exacerbation of chronic obstructive pulmonary disease. 4. Chronic obstructive pulmonary disease. 5. Probable sleep apnea. 6. Severe obesity. 7. Severe deconditioning. 8. Valvular heart disease. CONSULTATION: Pulmonary or Critical Care, Dr. Nicholas Anand. PROCEDURES: Echocardiogram on 08/23/2017 showed an EF of 60%-65%, mildly dilated left atrium, moderate mitral regurgitation, and severe tricuspid regurgitation. HISTORY AND PHYSICAL: Ms. Richter is a 72-year-old female with the above history who presents to the emergency department for evaluation on 08/22/2017. She was complaining of 2-day history of shortness of breath and had cough productive of some whitish sputum. She has some subjective fever but did not take anything. Denied any chills or rigors. No chest pain or palpitations. Has been off all of her medications over the last month prior to admission due to transportation issues. In the emergency department, white count was 21,500, creatinine 1.9 was around baseline. Troponin was normal and BNP was 102.8. ABG showed increased pCO2 and pH of 7.31. The patient was requiring BiPAP. She was subsequently admitted to the [facility]. HOSPITAL COURSE: Patient was seen and examined by Dr. Yung and placed in inpatient status. She was started on antibiotics with Rocephin, azithromycin, started nebulizer treatments and Pulmonary was consulted. Overnight on 08/23/2017 to 08/24/2017, the patient's breathing was stable. She was having significant expiratory wheezes and prolonged expiration with diminished breath sounds, she was started on IV Solu-Medrol by me and continued on BiPAP as needed. PT/OT was consulted. Respiratory therapy was giving nebulizer treatments as scheduled p.r.n. and the patient changed to p.o. levofloxacin. She was acting more like a COPD exacerbation with possible pneumonia or pulmonary edema. By 08/25/2017, she has not improved well. She has some perihilar fullness and so a CT scan was obtained that showed only a ground glass apparent opacities that have improved. She did have a possible pleural fat just in the mediastinum. Overall, she seemed to be slowly improving. By 08/27/2017, she is doing better. She has been transferred out to the telemetry floor and was not using her evening BiPAP. She was doing well and ambulating with physical therapy. She denies any other current complaints. By today, 08/28/2017, she has been weaned down to 2 liters, which is what she uses at home. Her lungs were clear with symmetrical respirations, she was able to get up and walk with physical therapy with minimal problems and was asking to go home. I discussed the case with Dr. Anand and he was agreeable. PHYSICAL EXAMINATION: The patient was seen and examined on the day of discharge. Discharge plan and disposition discussed with patient face to face with the bedside. DISCHARGE MEDICATIONS/NEW MEDICATIONS: 1. Albuterol sulfate 2.5 mg nebulized q.4 hours p.r.n. 60 nebulizer treatments with 2 refills. 2. Lasix 40 mg daily. 3. DuoNeb 3 mL q.6 hours scheduled 120 nebs with 2 refills. 4. Levofloxacin 750 mg p.o. daily for 7 more days. 5. Dulera (mometasone/formoterol) 200/5 two puffs b.i.d. Prescription for an inhaler with 2 refills sent. 6. Nebulizer and accessories prescription sent. 7. MiraLax 17 grams daily. 8. Prednisone 40 mg daily, decreased by 10 mg every 3 days until tapered off. FOLLOWUP APPOINTMENTS: 1. Primary care physician, Dr. Frey within a week. 2. Dr. Anand in 2-3 weeks. DISCHARGE ACTIVITY: Per cardiopulmonary limits. DISCHARGE CONDITION: Stable. DISPOSITION: Discharged home via private vehicle. She is getting [facility] for physical therapy and occupational therapy. DISCHARGE DIET: Heart healthy, low calorie recommended. MTDD
--- NOTE | 2017-10-03 15:42 | PQF ---
CRISTEL KEYS ERIC [id number] [facility]- B03 [id number] CLINICAL DOCUMENTATION CLARIFICATION FORM: POST DISCHARGE Addendum to original discharge summary date: ____ Late entry note date: __ DATE: 10/03/2017 ATTN: Dr Kj Mckeon Please exercise your independent, professional judgment in responding to the clarification form. Clinical indicators are provided on the bottom of this form for your review Please check appropriate box(es): [ ] Sepsis due to: (Pna, UTI, gangrenous gall bladder, etc.) Due to: [ ] Device (please specify) [ ] Implant [ ] Graft [ ] Infusion [ x ] SIRS due to non-infectious process (please specify etiology) [ ] with organ dysfunction [ x] without organ dysfunction [ ] Severe sepsis with acute organ dysfunction of: (Examples: respiratory failure, encephalopathy, acute kidney failure, other) [ ] Septic Shock [ ] Localized infection without sepsis [ ] Other diagnosis [ ] Unable to determine In addition, please specify: Present on Admission (POA): [ x] Yes [ ] No [ ] Unable to determine For continuity of documentation, please document condition throughout progress notes and discharge summary. Thank You. CLINICAL INDICATORS Please clarify after further study, if sepsis was diagnosed and if it was POA or not. Sepsis was originally diagnosed on the HP but no further indication throughout the patient stay that sepsis was a valid, treated diagnosis. RISK FACTORS Infection/Bacteremia Pneumonia, UTI, infected wound, gangrenous gall bladder Diabetes or Cancer Surgery / surgical instrumentation / trauma Ruptured/perforated bowel, ruptured appendix Immunosuppression Advancing Age MTDD
== END 2017-08-28 17:15 | disposition home health service (06) | DRG 189 ==
LOC: ERS 23:39 → IMCU/EMU 08-23 01:00 → 2NO 08-24 15:29 → UNDODISIN 08-27 13:39
PROVIDERS: ADMIT Internal Medicine; ATTEND Internal Medicine
DX: J96.21 Acute and chronic respiratory failure with hypoxia (principal); I13.0 Hypertensive heart and chronic kidney disease with heart failure and stage 1 through stage 4 chronic kidney disease, or unspecified chronic kidney disease; I50.32 Chronic diastolic (congestive) heart failure; E66.01 Morbid (severe) obesity due to excess calories; Z99.81 Dependence on supplemental oxygen; J44.1 Chronic obstructive pulmonary disease with (acute) exacerbation; I08.1 Rheumatic disorders of both mitral and tricuspid valves; Z68.43 Body mass index [BMI] 50.0-59.9, adult; J96.22 Acute and chronic respiratory failure with hypercapnia; N18.9 Chronic kidney disease, unspecified; E78.5 Hyperlipidemia, unspecified; Z91.14 Patient's other noncompliance with medication regimen; G47.30 Sleep apnea, unspecified; D63.1 Anemia in chronic kidney disease; Z51.5 Encounter for palliative care
CPT/HCPCS: 36415; 51702; 71045; 71260; 80048; 80053; 82553; 82805; 83605; 83735; 83880; 84443; 84484; 85025; 87040; 87086; 87804; 90471; 90682; 93005; 93306; 94640; 94660; 94664; 94760; 96365; 96375; A4216; G0008; G8978-GP-CK; G8979-GP-CI; G8987-GO-CL; G8988-GO-CJ; J0456; J0696; J1642; J1650; J2920; J2930; J3475; J7050; J7506; J7620; Q2036

== ENCOUNTER 2018-03-10 12:56 | Emergency (ER) | payer MEDICARE, MEDICAID ==
[2018-03-10] MEDS ORDERED: Adacel (T-DAP) 0.5 ML VIAL ONE (13:50)
== END 2018-03-10 13:58 | disposition home or self-care (01) ==
LOC: ERS 12:56
DX: S80.812A Abrasion, left lower leg, initial encounter (principal); S70.312A Abrasion, left thigh, initial encounter; E78.5 Hyperlipidemia, unspecified; G47.33 Obstructive sleep apnea (adult) (pediatric); I13.0 Hypertensive heart and chronic kidney disease with heart failure and stage 1 through stage 4 chronic kidney disease, or unspecified chronic kidney disease; I50.9 Heart failure, unspecified; N18.9 Chronic kidney disease, unspecified; E66.9 Obesity, unspecified; W19.XXXA Unspecified fall, initial encounter
CPT/HCPCS: 90471; 90715

== ENCOUNTER 2018-04-25 18:30 | Emergency (ER) | payer MEDICARE, MEDICAID ==
--- NOTE | 2018-04-25 19:28 | RAD ---
CHEST ONE VIEW: 04/25/18 INDICATION: History of chest pain. COMPARISON: Prior exam dated 08/25/17. FINDINGS: There is mild cardiomegaly with mild pulmonary vascular congestion. No pleural effusion or pneumothor ax is evident. No acute osseous abnormality is evident. IMPRESSION: Cardiomegaly with mild pulmonary vascular congestion. POS: BH
[2018-04-25 19:32] LABS: #Eosinphils 0.2 thou/uL (0.0-0.7); #Lymphocytes 1.5 thou/uL (1.20-3.40); #Monocytes 0.9 thou/uL (0.11-0.59); #Neutrophils 5.4 thou/uL (1.40-6.50); %Basophils 0.1 % (0.0-1.0); %Lymphocytes 19.1 % (21.0-51.0); %Monocytes 10.9 % (0.0-10.0); %Neutrophils 67.9 % (42.0-75.0); Hemoglobin 11.2 g/dL (12.0-16.0); Mean Corpuscular Hemoglobin 28.4 pg (27.0-31.0); Mean Corpuscular Volume 94.4 fL (78.0-98.0); Platelet Count 347 thou/uL (130-400); RBC Distribution Width 14.3 % (11.5-14.5); Red Blood Cell (RBC) Count 3.94 mill/uL (4.20-5.40)
[2018-04-25 19:55] LABS: ALT (SGPT) 13 U/L (8-55); AST (SGOT) 18 U/L (5-34); Albumin 3.8 g/dL (3.4-4.8); Alkaline Phosphatase 173 U/L (40-150); Anion Gap 11 mmol/L (10-20); BUN (Urea Nitrogen) 25 mg/dL (9.8-20.1); Bilirubin, Total 0.4 mg/dL (0.2-1.2); Calc. Creatinine Clearance 0 mL/min (70-130); Carbon Dioxide 30 mmol/L (23-31); Chloride 104 mmol/L (98-107); Estimated GFR-MDRD 49; Globulin 3.5 g/dL (2.4-3.5); Glucose 107 mg/dL (80-115); Potassium 4.1 mmol/L (3.5-5.1); Protein, Total 7.3 g/dL (6.0-8.3); Sodium 141 mmol/L (136-145)
[2018-04-25 19:58] LABS: CKMB 0.5 ng/mL (0-6.6); Troponin I Less than 0.010 ng/mL (< 0.028)
== END 2018-04-25 21:25 | disposition home or self-care (01) ==
LOC: ERS 18:30
DX: J40 Bronchitis, not specified as acute or chronic (principal); I50.9 Heart failure, unspecified; E66.9 Obesity, unspecified; I13.0 Hypertensive heart and chronic kidney disease with heart failure and stage 1 through stage 4 chronic kidney disease, or unspecified chronic kidney disease; N18.9 Chronic kidney disease, unspecified; G47.30 Sleep apnea, unspecified; Z79.899 Other long term (current) drug therapy
CPT/HCPCS: 36415; 71045; 80053; 82553; 83880; 84484; 85025; 93005; J7620

== ENCOUNTER 2018-06-27 16:49 | Observation (INO) | payer MEDICARE, MEDICAID ==
[2018-06-27 17:37] LABS: #Eosinphils 0.2 thou/uL (0.0-0.7); #Lymphocytes 2.1 thou/uL (1.20-3.40); #Monocytes 0.7 thou/uL (0.11-0.59); #Neutrophils 6.9 thou/uL (1.40-6.50); %Basophils 0.1 % (0.0-1.0); %Eosinophils 2.2 % (0.0-10.0); %Lymphocytes 20.7 % (21.0-51.0); %Neutrophils 69.9 % (42.0-75.0); Hemoglobin 10.5 g/dL (12.0-16.0); Mean Corpuscular HGB CONC 30.7 g/dL (32.0-36.0); Mean Corpuscular Hemoglobin 28.5 pg (27.0-31.0); Mean Corpuscular Volume 92.8 fL (78.0-98.0); Mean Platelet Volume 8.1 fL (7.4-10.4); Platelet Count 354 thou/uL (130-400); RBC Distribution Width 14.3 % (11.5-14.5); Red Blood Cell (RBC) Count 3.68 mill/uL (4.20-5.40); White Blood Cell (WBC) Count 9.9 thou/uL (4.8-10.8)
[2018-06-27 18:01] LABS: ALT (SGPT) 9 U/L (8-55); AST (SGOT) 13 U/L (5-34); Albumin 3.5 g/dL (3.4-4.8); Alkaline Phosphatase 155 U/L (40-150); Anion Gap 13 mmol/L (10-20); BUN (Urea Nitrogen) 27 mg/dL (9.8-20.1); Bilirubin, Total 0.3 mg/dL (0.2-1.2); CK (CPK) 52 U/L (29-168); Calc. Creatinine Clearance 0 mL/min (70-130); Calcium 9.1 mg/dL (7.8-10.44); Carbon Dioxide 27 mmol/L (23-31); Chloride 107 mmol/L (98-107); Estimated GFR-MDRD 48; Globulin 3.5 g/dL (2.4-3.5); Glucose 95 mg/dL (83-110); Potassium 4.3 mmol/L (3.5-5.1); Sodium 143 mmol/L (136-145)
[2018-06-27 19:25] LABS: Bilirubin Negative (Negative); Blood, Urine Trace (Negative); Clarity CLOUDY (Clear); Glucose, Urine (Dipstick) Negative (Negative); Leukocyte Small (Negative); Nitrite Negative (Negative); Protein, Urine (Dipstick) Negative (Neg-Trace); Specific Gravity, Urine 1.018 (1.002-1.036)
[2018-06-27 19:32] LABS: Hyaline Casts/LPF 0-3 HYALINE CAST LPF (0-3 Hyaline); Pathc Cast-AUWi Flag 0.43 (0-2.49); WBC/HPF 0-3 HPF (0-3)
[2018-06-27 19:33] LABS: Yeast-AUWi Flag 122.5 (0-25.0)
--- NOTE | 2018-06-27 19:33 | RAD ---
RADIOGRAPH CHEST 1 VIEW: Date: 06/27/18 Time: 5:48 p.m. HISTORY: 73-year-old female with generalized weakness. COMPARISON: 04/25/18 FINDINGS: Cardiomegaly. Pulmonary venous engorgement. Prominent interstitial markings. No consolidation or pneu mothorax. No major interval change. No newton pulmonary alveolar edema. IMPRESSION: Cardiomegaly and pulmonary venous congestion are evidence for mild congestive heart failure. BIRGIT [] POS: SHANNAN
[2018-06-27 19:47] LABS: Bacteria/HPF 1+ HPF (None Seen)
[2018-06-27 19:48] LABS: Crystals/HPF 1+ AMORPH PHOS HPF (Negative)
[2018-06-27] MEDS ORDERED: Acetaminophen 650 MG Suppository PR PRN (22:33)
[2018-06-27] MEDS ORDERED: Ondansetron PF 4 MG/2 ML Vial IVP PRN (22:33)
[2018-06-27] MEDS ORDERED: Ondansetron ODT 4 MG TAB PO PRN (22:33)
[2018-06-27] MEDS ORDERED: Senokot S 8.6-50 MG TAB PO PRN (22:33)
[2018-06-27] MEDS ORDERED: Famotidine 20 MG TAB PO SCH (23:15)
[2018-06-27 23:53] LABS: CKMB 0.5 ng/mL (0-6.6)
[2018-06-28] MEDS: Acetaminophen 325 MG TAB PO PRN ×2 (00:02→08:30)
[2018-06-28 00:20] VITALS: BMI 50.8
--- NOTE | 2018-06-28 02:05 | HP ---
PRIMARY CARE PHYSICIAN: Christine Frey MD. CHIEF COMPLAINT: Weakness. HISTORY OF PRESENT ILLNESS: This is a 73-year-old white female with morbid obesity, diastolic congestive heart failure, on chronic O2 with severe deconditioning. She has a hard time getting around even just her house, uses a walker for ambulation. The patient reports that over the last 2 weeks she has gotten progressively weaker, though that has really been a slow decline over some time. She has considered going into a penitentiary in the past and she wanted to go talk to her doctor about it and was actually scheduled to go today. The patient reports that she had had a couple of episodes of some chest tightness, most recently 4 days ago that lasted for about 5 minutes and resolved with changing her oxygen tubing. She does not have any current chest pain. No chest pain symptoms today. She does have baseline shortness of breath and dyspnea on exertion, requiring oxygen. However, this is not any worse than normal. She denies fever or other symptoms. PAST MEDICAL HISTORY: 1. Diastolic congestive heart failure with preserved ejection fraction of 55% to 60%. 2. Chronic dyspnea. 3. Chronic hypoxia, on home oxygen. 4. Morbid obesity. 5. Hyperlipidemia. PAST SURGICAL HISTORY: 1. Hysterectomy. 2. Hernia repair. SOCIAL HISTORY: The patient is , lives with her daughter in [place], [place]. No alcohol, tobacco, or illicit drug use. FAMILY HISTORY: Brother with congestive heart failure. Aunt with leukemia. ALLERGIES: NO KNOWN DRUG ALLERGIES. MEDICATIONS: 1. Furosemide 40 mg daily. 2. Atorvastatin 20 mg daily. 3. Vitamin D2 50,000 units orally once a week. 4. Allopurinol 100 mg daily. 5. Amlodipine 5 mg daily. 6. Azithromycin, she was put on by her prior PCP recently. 7. Prednisone 20 mg daily. REVIEW OF SYSTEMS: CONSTITUTIONAL: No fevers, no chills. EYES: No double vision or blurred vision. ENT: She has had a little bit of runny nose, not much congestion. No sore throat. PULMONARY: She has an occasional cough, nonproductive. No wheezing. No increase in her chronic shortness of breath. CARDIOVASCULAR: See HPI. No active chest pain right now. No palpitation. GASTROINTESTINAL: No abdominal pain. Occasionally, she will get nauseated, none currently. No vomiting. No diarrhea or constipation. GENITOURINARY: No dysuria or hematuria. MUSCULOSKELETAL: No muscle aches or joint pains, just generalized weakness. SKIN: She bruises easily and has scratches on her arms and her legs from scratching herself. The patient was noted to have a lot of what appeared to be bedbugs in her sweater and they were removed in the emergency room. NEUROLOGIC: She denies any current numbness, tingling, or focal weakness just generalized weakness. PHYSICAL EXAMINATION: VITAL SIGNS: Blood pressure 137/70, pulse 72, respirations 17, temperature 98, O2 saturation 99% on 2 L. GENERAL: This is an elderly, morbidly obese white female in no acute distress, on her home 2 L of oxygen. She is poorly groomed, does have something of an odor to her and her clothes are not clean and a little disheveled. HEENT: Pupils, right pupil is minimally larger than the left pupil, not a large difference, they are both round and equally reactive to light. Her vision is equal in both eyes. Oropharynx, clear without lesions, erythema, or exudate. NECK: Supple. No lymphadenopathy. No thyroid nodules or enlargement. No JVD. HEART: Regular rate and rhythm. No murmurs, rubs, or gallops. LUNGS: Clear to auscultation bilaterally. No wheezes, crackles, or rhonchi. ABDOMEN: Soft, obese, nontender to palpation. Normoactive bowel sounds. No hepatosplenomegaly or other masses. EXTREMITIES: No clubbing, cyanosis, or edema. SKIN: She does have some abrasions and scratches on her legs and arms that are consistent with her scratching itches. NEUROLOGIC: She has equal strength in all extremities about 4.5/5 in upper and lower extremities bilaterally. No facial droop. Normal reflexes throughout. Normal sensation throughout. PSYCHIATRIC: Alert and oriented x3. Normal mood and affect. She does appear to be a little bit slow mentally as do both of her children who are in the room. LABORATORY DATA: CBC with a hemoglobin of 10.5, hematocrit 34.2. This has actually been fairly chronic for her for the last 2 years. The rest of CBC was normal. No leukocytosis. Her complete metabolic panel is notable for a BUN of 27 and a creatinine of 1.11. This is consistent with her previous labs. Alkaline phosphatase is a little up at 155, also consistent with previous labs. The rest of her CMP was normal. Brain natriuretic peptide is 38. She typically has 1-200 if she has any exacerbation. Troponins are now negative x2. Urinalysis showed small leukocyte esterase, 7-10 rbc's, 0-3 white blood cells, and 1+ bacteria. Culture is pending. IMAGING: Chest x-ray, I did review the chest x-ray done in the emergency room along with the radiologist's report. The patient does have cardiomegaly and pulmonary venous congestion consistent with her history of CHF. No interval changes with previous films though. ASSESSMENT: 1. Morbid obesity with progressive weakness. The patient appears just to be getting slowly weaker over time. There has not been a sudden drop that would indicate an infection or stroke. We will watch her in the hospital overnight and work her up due to the chest pain she had a few days ago, though expect the enzymes to all field return repairer negative and telemetry monitoring to be okay overnight. If everything is clear tomorrow, then I will have Physical Therapy evaluate her and then do a rehab eval. I will also contact Palliative Care and let them know that she is here as they have consulted on her before and she would like to have discussed further resuscitation status and living will paperwork. 2. Chest pain. None for the last few days. Her cardiac markers are negative thus far. I anticipate that all three sets will be negative. We will watch her on telemetry monitoring overnight. 3. Diastolic congestive heart failure, severe, though not in exacerbation. Currently, her BNP is normal and she is at her normal baseline level of shortness of breath. 4. Deep venous thrombosis prophylaxis. We will put the patient on Lovenox and SCDs while she is in hospital. 5. Gastrointestinal prophylaxis. We will put the patient on Pepcid twice a day. 6. Code status. I did discuss this with the patient. She is full code for right now. She was unable to identify a medical decision maker at this time, though she said possibly her daughter, Alannah Richter is one possibility and she did want to discuss this with the palliative care team as well. 7. If the patient does not qualify for rehab, she may need to be transitioned over to inpatient for her congestive heart failure with worsening weakness and then I will look at doing a [place] [facility] facility. Job ID: [id number]
[2018-06-28 04:55] LABS: #Eosinphils 0.2 thou/uL (0.0-0.7); #Lymphocytes 2.1 thou/uL (1.20-3.40); #Monocytes 0.7 thou/uL (0.11-0.59); %Basophils 0.6 % (0.0-1.0); %Eosinophils 2.7 % (0.0-10.0); %Neutrophils 61.8 % (42.0-75.0); Hemoglobin 9.8 g/dL (12.0-16.0); Mean Corpuscular HGB CONC 31.2 g/dL (32.0-36.0); Mean Corpuscular Hemoglobin 28.8 pg (27.0-31.0); Mean Corpuscular Volume 92.4 fL (78.0-98.0); Mean Platelet Volume 8.3 fL (7.4-10.4); Platelet Count 337 thou/uL (130-400); RBC Distribution Width 14.4 % (11.5-14.5); Red Blood Cell (RBC) Count 3.39 mill/uL (4.20-5.40); White Blood Cell (WBC) Count 8.1 thou/uL (4.8-10.8)
[2018-06-28 05:13] LABS: Anion Gap 13 mmol/L (10-20); BUN (Urea Nitrogen) 26 mg/dL (9.8-20.1); Calc. Creatinine Clearance 96 mL/min (70-130); Calcium 8.9 mg/dL (7.8-10.44); Carbon Dioxide 27 mmol/L (23-31); Chloride 107 mmol/L (98-107); Estimated GFR-MDRD 52; Glucose 103 mg/dL (83-110); Sodium 143 mmol/L (136-145)
[2018-06-28] MEDS: predniSONE 20 MG TAB PO SCH (08:15)
[2018-06-28] MEDS: Furosemide 40 MG TAB PO SCH (08:15)
[2018-06-28] MEDS: Amlodipine 5 MG TAB PO SCH (08:15)
[2018-06-28] MEDS: Atorvastatin Calcium 20 MG TAB PO SCH (08:15)
[2018-06-28] MEDS: Enoxaparin Sodium 40 MG/0.4 ML SYRINGE SC SCH (08:15)
[2018-06-28] MEDS: Allopurinol 100 MG TAB PO SCH (08:15)
--- NOTE | 2018-06-28 18:07 | PDOC.EVN ---
Event Note - Event Note Event Note: Chart reviewed. Pt seen. Pt denies chest pain. Reports SOBOE. S1, S2 Lungs CTA A/P: 1. CHF: stable 2. Needs placement
--- NOTE | 2018-06-28 18:59 | PDOC.PN ---
- Subjective Encounter Start Date: 06/28/18 Encounter Start Time: 02:15 Subjective: Patient feeling short of breath at rest and with minimal exertion. -: No chest pain at present. States she feels back to baseline. -: No n/v. No headaches/dizziness. No cough/hemoptysis. - Objective Resuscitation Status - Order Detail: 06/27/18 20:37 Resuscitation Status Routine Resuscitation Status: FULL: Full Resuscitation Discussed with: Patient Additional comments: Would like to discuss further with Palliative Care Vital Signs & Weight: Vital Signs (12 hours) Temp Pulse Pulse Pulse Resp BP BP 06/28/18 15:10 97.3 F L 73 24 H 06/28/18 12:08 98.3 F 75 24 H 06/28/18 10:52 70 71 141/63 H 158/64 H 06/28/18 10:35 72 74 159/72 H 207/79 H 06/28/18 08:15 64 06/28/18 07:48 97.3 F L 64 24 H BP Pulse Ox 06/28/18 15:10 127/57 L 94 L 06/28/18 12:08 147/66 H 98 06/28/18 10:52 06/28/18 10:35 06/28/18 08:15 06/28/18 07:48 131/57 L 94 L Weight Weight 273 lb 12.8 oz I&O: 06/27/18 06/28/18 06/29/18 06:59 06:59 06:59 Intake Total 480 Output Total 100 Balance 380 Result Diagrams: 06/28/18 04:22 06/28/18 04:22 Phys Exam - Physical Examination visibly sob as she just mobilised form the toilet HEENT: PERRLA, moist MMs Neck: no nodes, full ROM Respiratory: clear to auscultation bilateral Cardiovascular: RRR Gastrointestinal: soft, non-tender, no distention obese Musculoskeletal: no edema, pulses present Neurological: non-focal Psychiatric: normal affect, A&O x 3 Skin: no rash Dx/Plan (1) Acute on chronic respiratory failure with hypoxemia Code(s): J96.21 - ACUTE AND CHRONIC RESPIRATORY FAILURE WITH HYPOXIA Status: Acute Comment: BiPAP QHS for DAREK. wean as tolerated NC during the day. transferred to [facility], pul following. CT with improvement in GGO. Abx, nebs, steroids. close to baseline i think. Home when okay with pulmonary (2) Chronic diastolic (congestive) heart failure Code(s): I50.32 - CHRONIC DIASTOLIC (CONGESTIVE) HEART FAILURE Status: Chronic Comment: watch I/O (3) HTN (hypertension) Code(s): I10 - ESSENTIAL (PRIMARY) HYPERTENSION Status: Chronic Qualifiers: Hypertension type: essential hypertension Qualified Code(s): I10 - Essential (primary) hypertension (4) Morbid obesity with BMI of 50.0-59.9, adult Code(s): E66.01 - MORBID (SEVERE) OBESITY DUE TO EXCESS CALORIES; Z68.43 - BODY MASS INDEX (BMI) 50-59.9, ADULT Status: Chronic (5) Physical deconditioning Code(s): R53.81 - OTHER MALAISE Status: Chronic (6) Valvular heart disease Status: Chronic Comment: mod MR, mod to severe TR. - Plan cont current plan of care Patient previously advised transition to NH due comorbidities -: and requiring oxygen at home. She is at baseline currently. -: Feels ready to transition to NH. To be discharged pending placement. -: Discussed with Dr. Luna who agrees with plan as above. * . Review of Systems - Review of Systems Constitutional: negative: fever, chills, sweats, weakness, malaise, other Eyes: negative: Pain, Vision Change, Conjunctivae Inflammation, Eyelid Inflammation, Redness, Other ENT: negative: Ear Pain, Ear Discharge, Nose Pain, Nose Discharge, Nose Congestion, Mouth Pain, Mouth Swelling, Throat Pain, Throat Swelling, Other Respiratory: Cough Cardiovascular: negative: chest pain, palpitations, orthopnea, paroxysmal nocturnal dyspnea, edema, light headedness, other Gastrointestinal: negative: Nausea, Vomiting, Abdominal Pain, Diarrhea, Constipation, Melena, Hematochezia, Other Genitourinary: negative: Dysuria, Frequency, Incontinence, Hematuria, Retention , Other Musculoskeletal: negative: Neck Pain, Shoulder Pain, Arm Pain, Back Pain, Hand Pain, Leg Pain, Foot Pain, Other Skin: negative: Rash, Lesions, Travon, Bruising, Other Neurological: negative: Weakness, Numbness, Incoordination, Change in Speech, Confusion, Seizures, Other - Medications/Allergies Allergies/Adverse Reactions: Allergies Allergy/AdvReac Type Severity Reaction Status Date / Time No Known Allergies Allergy Verified 06/27/18 23:03 Medications: Current Medications Acetaminophen (Tylenol) 650 mg PO Q4H PRN PRN Reason: Headache/Fever/Mild Pain (1-3) Last Admin: 06/28/18 08:30 Dose: 650 mg Acetaminophen (Tylenol) 650 mg WA Q4H PRN PRN Reason: Headache/Fever/Mild Pain (1-3) Albuterol/Ipratropium (Duoneb) 3 ml NEB Q4H PRN PRN Reason: SOB &/or Wheezing Allopurinol (Zyloprim) 100 mg PO DAILY [facility] Last Admin: 06/28/18 08:15 Dose: 100 mg Amlodipine Besylate (Norvasc) 5 mg PO DAILY [facility] Last Admin: 06/28/18 08:15 Dose: 5 mg Atorvastatin Calcium (Lipitor) 20 mg PO DAILY [facility] Last Admin: 06/28/18 08:15 Dose: 20 mg Enoxaparin Sodium (Lovenox) 40 mg SC 0900 [facility] Last Admin: 06/28/18 08:15 Dose: 40 mg Famotidine (Pepcid) 20 mg PO Q24HR [facility] Furosemide (Lasix) 40 mg PO DAILY[facility] Last Admin: 06/28/18 08:15 Dose: 40 mg Ondansetron HCl (Zofran Odt) 4 mg PO Q6H PRN PRN Reason: Nausea/Vomiting Ondansetron HCl (Zofran) 4 mg IVP Q6H PRN PRN Reason: Nausea/Vomiting Prednisone (Prednisone) 20 mg PO QAM[facility] Last Admin: 06/28/18 08:15 Dose: 20 mg Senna/Docusate Sodium (Senokot S) 2 tab PO BID PRN PRN Reason: Constipation
[2018-06-28] MEDS: Famotidine 20 MG TAB PO SCH (20:50)
[2018-06-29] MEDS: predniSONE 20 MG TAB PO SCH (09:06)
[2018-06-29] MEDS: Atorvastatin Calcium 20 MG TAB PO SCH (09:06)
[2018-06-29] MEDS: Enoxaparin Sodium 40 MG/0.4 ML SYRINGE SC SCH (09:06)
[2018-06-29] MEDS: Allopurinol 100 MG TAB PO SCH (09:06)
[2018-06-29] MEDS: Furosemide 40 MG TAB PO SCH (09:06)
[2018-06-29] MEDS: Amlodipine 5 MG TAB PO SCH (09:06)
[2018-06-29] MEDS: Famotidine 20 MG TAB PO SCH (21:03)
--- NOTE | 2018-06-29 23:05 | PDOC.PN ---
- Subjective Encounter Start Date: 06/29/18 Encounter Start Time: 13:03 Subjective: Patient continues with sob requiring oxygen but at baseline. -: Afebrile. No sweats. No CP. Denies any abdo pain. No n/v. -: Patient denies any headaches or dizziness. No urinary symptoms. - Objective Resuscitation Status - Order Detail: 06/27/18 20:37 Resuscitation Status Routine Resuscitation Status: FULL: Full Resuscitation Discussed with: Patient Additional comments: Would like to discuss further with Palliative Care Vital Signs & Weight: Vital Signs (12 hours) Temp Pulse Resp BP Pulse Ox 06/29/18 21:15 97.3 F L 69 18 162/68 H 94 L 06/29/18 16:00 97.8 F 72 20 155/65 H 93 L 06/29/18 11:33 97.9 F 66 20 134/60 94 L Weight Weight 279 lb 6.4 oz I&O: 06/28/18 06/29/18 06/30/18 06:59 06:59 06:59 Intake Total 480 480 590 Output Total 100 1000 650 Balance 380 -520 -60 Result Diagrams: 07/01/18 04:16 07/01/18 04:16 Phys Exam - Physical Examination Constitutional: NAD HEENT: PERRLA, sclera anicteric, oral pharynx no lesions Neck: supple, full ROM Respiratory: clear to auscultation bilateral Cardiovascular: RRR Gastrointestinal: soft, non-tender, positive bowel sounds Musculoskeletal: no edema, pulses present Neurological: normal sensation, moves all 4 limbs Psychiatric: normal affect, A&O x 3 Skin: no rash Dx/Plan (1) Acute on chronic respiratory failure with hypoxemia Code(s): J96.21 - ACUTE AND CHRONIC RESPIRATORY FAILURE WITH HYPOXIA Status: Acute Comment: BiPAP QHS for DAREK. wean as tolerated NC during the day. transferred to [facility], pul following. CT with improvement in GGO. Abx, nebs, steroids. close to baseline i think. Home when okay with pulmonary (2) Chronic diastolic (congestive) heart failure Code(s): I50.32 - CHRONIC DIASTOLIC (CONGESTIVE) HEART FAILURE Status: Chronic Comment: watch I/O (3) HTN (hypertension) Code(s): I10 - ESSENTIAL (PRIMARY) HYPERTENSION Status: Chronic Qualifiers: Hypertension type: essential hypertension Qualified Code(s): I10 - Essential (primary) hypertension (4) Morbid obesity with BMI of 50.0-59.9, adult Code(s): E66.01 - MORBID (SEVERE) OBESITY DUE TO EXCESS CALORIES; Z68.43 - BODY MASS INDEX (BMI) 50-59.9, ADULT Status: Chronic (5) Physical deconditioning Code(s): R53.81 - OTHER MALAISE Status: Chronic (6) Valvular heart disease Status: Chronic Comment: mod MR, mod to severe TR. - Plan cont current plan of care Patient stable. No complaints -: Awaiting placement. -: Per [facility], approved at a facility but patient wanting to -: seek out approval at [facility]. Approved but requiring MD acceptance. * .
[2018-06-30] MEDS: Allopurinol 100 MG TAB PO SCH (09:01)
[2018-06-30] MEDS: Amlodipine 5 MG TAB PO SCH (09:01)
[2018-06-30] MEDS: Enoxaparin Sodium 40 MG/0.4 ML SYRINGE SC SCH (09:02)
[2018-06-30] MEDS: Atorvastatin Calcium 20 MG TAB PO SCH (09:02)
[2018-06-30] MEDS: Furosemide 40 MG TAB PO SCH (09:02)
[2018-06-30] MEDS: predniSONE 20 MG TAB PO SCH (09:02)
--- NOTE | 2018-06-30 10:54 | EKG ---
Test Reason : Blood Pressure : / mmHG Vent. Rate : 072 BPM Atrial Rate : 072 BPM P-R Int : 128 ms QRS Dur : 086 ms QT Int : 362 ms P-R-T Axes : 049 048 027 degrees QTc Int : 396 ms Normal sinus rhythm with sinus arrhythmia Junctional ST depression, probably normal Borderline ECG Confirmed by BETHANIE ESPARZA DO ([id number]), supervising editor news reel BEATRICE VASQUEZ ([id number]) on 06/30/2018 10:54:14 AM Referred By: Confirmed By:BETHANIE ESPARZA DO
--- NOTE | 2018-06-30 16:07 | PDOC.PN ---
- Subjective Encounter Start Date: 06/30/18 Encounter Start Time: 13:06 Subjective: Patient feeling better than yesterday. Less short of breath. -: Tolerating oral intake. No n/v. No abdominal pain. -: No CAMERON/dizziness. No urinary symptoms. Denies any CP. - Objective Resuscitation Status - Order Detail: 06/27/18 20:37 Resuscitation Status Routine Resuscitation Status: FULL: Full Resuscitation Discussed with: Patient Additional comments: Would like to discuss further with Palliative Care Vital Signs & Weight: Vital Signs (12 hours) Temp Pulse Resp BP BP Pulse Ox 06/30/18 12:02 97.6 F 62 24 H 128/48 L 92 L 06/30/18 09:01 55 L 128/55 L 06/30/18 08:07 97.4 F L 55 L 24 H 134/78 100 Weight Weight 267 lb 8 oz I&O: 06/29/18 06/30/18 07/01/18 06:59 06:59 06:59 Intake Total 480 990 Output Total 1000 650 Balance -520 340 Result Diagrams: 07/01/18 04:16 07/01/18 04:16 Phys Exam - Physical Examination Constitutional: NAD HEENT: PERRLA, moist MMs, oral pharynx no lesions Neck: supple, full ROM Respiratory: no wheezing, no rales, no rhonchi Cardiovascular: RRR Gastrointestinal: soft, non-tender obese Musculoskeletal: no edema, pulses present Neurological: normal sensation, moves all 4 limbs Psychiatric: normal affect, A&O x 3 Skin: no rash, normal turgor Dx/Plan (1) Acute on chronic respiratory failure with hypoxemia Code(s): J96.21 - ACUTE AND CHRONIC RESPIRATORY FAILURE WITH HYPOXIA Status: Acute Comment: BiPAP QHS for DAREK. wean as tolerated NC during the day. transferred to [facility], pul following. CT with improvement in GGO. Abx, nebs, steroids. close to baseline i think. Home when okay with pulmonary (2) Chronic diastolic (congestive) heart failure Code(s): I50.32 - CHRONIC DIASTOLIC (CONGESTIVE) HEART FAILURE Status: Chronic Comment: watch I/O (3) HTN (hypertension) Code(s): I10 - ESSENTIAL (PRIMARY) HYPERTENSION Status: Chronic Qualifiers: Hypertension type: essential hypertension Qualified Code(s): I10 - Essential (primary) hypertension (4) Morbid obesity with BMI of 50.0-59.9, adult Code(s): E66.01 - MORBID (SEVERE) OBESITY DUE TO EXCESS CALORIES; Z68.43 - BODY MASS INDEX (BMI) 50-59.9, ADULT Status: Chronic (5) Physical deconditioning Code(s): R53.81 - OTHER MALAISE Status: Chronic (6) Valvular heart disease Status: Chronic Comment: mod MR, mod to severe TR. - Plan cont current plan of care Discharge pending NH placement. * . Review of Systems - Review of Systems Constitutional: negative: fever, chills, sweats, weakness Respiratory: Shortness of Breath (at baseline, significantly improved since admission), SOB with Excertion (at baseline. Lessened since admission.). negative: Cough, Dry, Hemoptysis, Pleuritic Pain, Sputum, Wheezing Cardiovascular: negative: chest pain, palpitations, orthopnea, paroxysmal nocturnal dyspnea, edema, light headedness Gastrointestinal: negative: Nausea, Vomiting, Abdominal Pain, Diarrhea, Constipation, Melena, Hematochezia Genitourinary: negative: Dysuria, Frequency, Incontinence, Hematuria, Retention Skin: negative: Rash, Lesions, Travon, Bruising Neurological: negative: Weakness, Numbness, Incoordination, Change in Speech, Confusion, Seizures - Medications/Allergies Allergies/Adverse Reactions: Allergies Allergy/AdvReac Type Severity Reaction Status Date / Time No Known Allergies Allergy Verified 06/27/18 23:03 Medications: Current Medications Acetaminophen (Tylenol) 650 mg PO Q4H PRN PRN Reason: Headache/Fever/Mild Pain (1-3) Last Admin: 07/01/18 08:54 Dose: 650 mg Acetaminophen (Tylenol) 650 mg MI Q4H PRN PRN Reason: Headache/Fever/Mild Pain (1-3) Albuterol/Ipratropium (Duoneb) 3 ml NEB Q4H PRN PRN Reason: SOB &/or Wheezing Allopurinol (Zyloprim) 100 mg PO DAILY [facility] Last Admin: 07/01/18 08:54 Dose: 100 mg Amlodipine Besylate (Norvasc) 10 mg PO DAILY [facility] Atorvastatin Calcium (Lipitor) 20 mg PO DAILY [facility] Last Admin: 07/01/18 08:54 Dose: 20 mg Enoxaparin Sodium (Lovenox) 40 mg SC 0900 [facility] Last Admin: 07/01/18 08:55 Dose: 40 mg Famotidine (Pepcid) 20 mg PO Q24HR [facility] Last Admin: 06/30/18 20:58 Dose: 20 mg Ondansetron HCl (Zofran Odt) 4 mg PO Q6H PRN PRN Reason: Nausea/Vomiting Ondansetron HCl (Zofran) 4 mg IVP Q6H PRN PRN Reason: Nausea/Vomiting Prednisone (Prednisone) 20 mg PO QAM[facility] Last Admin: 07/01/18 08:54 Dose: 20 mg Senna/Docusate Sodium (Senokot S) 2 tab PO BID PRN PRN Reason: Constipation
[2018-06-30 16:51] LABS: #Lymphocytes 1.8 thou/uL (1.20-3.40); #Monocytes 0.2 thou/uL (0.11-0.59); #Neutrophils 8.4 thou/uL (1.40-6.50); %Basophils 0.2 % (0.0-1.0); %Eosinophils 0.2 % (0.0-10.0); %Lymphocytes 17.4 % (21.0-51.0); %Monocytes 1.8 % (0.0-10.0); %Neutrophils 80.4 % (42.0-75.0); Hemoglobin 11.2 g/dL (12.0-16.0); Mean Corpuscular HGB CONC 30.1 g/dL (32.0-36.0); Mean Corpuscular Hemoglobin 27.4 pg (27.0-31.0); Mean Corpuscular Volume 90.9 fL (78.0-98.0); Mean Platelet Volume 5.9 fL (7.4-10.4); Platelet Count 396 thou/uL (130-400); RBC Distribution Width 14.2 % (11.5-14.5); Red Blood Cell (RBC) Count 4.08 mill/uL (4.20-5.40); White Blood Cell (WBC) Count 10.4 thou/uL (4.8-10.8)
[2018-06-30 17:10] LABS: ALT (SGPT) 12 U/L (8-55); AST (SGOT) 16 U/L (5-34); Albumin 4.2 g/dL (3.4-4.8); Alkaline Phosphatase 157 U/L (40-150); Anion Gap 14 mmol/L (10-20); BUN (Urea Nitrogen) 38 mg/dL (9.8-20.1); Bilirubin, Total 0.4 mg/dL (0.2-1.2); Calc. Creatinine Clearance 73 mL/min (70-130); Calcium 9.5 mg/dL (7.8-10.44); Carbon Dioxide 29 mmol/L (23-31); Chloride 101 mmol/L (98-107); Estimated GFR-MDRD 39; Globulin 3.7 g/dL (2.4-3.5); Glucose 134 mg/dL (83-110); Potassium 4.3 mmol/L (3.5-5.1); Protein, Total 7.9 g/dL (6.0-8.3); Sodium 140 mmol/L (136-145)
[2018-06-30] MEDS: Famotidine 20 MG TAB PO SCH (20:58)
[2018-07-01 04:48] LABS: #Lymphocytes 2.7 thou/uL (1.20-3.40); #Monocytes 0.7 thou/uL (0.11-0.59); #Neutrophils 5.9 thou/uL (1.40-6.50); %Basophils 0.3 % (0.0-1.0); %Eosinophils 0.2 % (0.0-10.0); %Lymphocytes 28.6 % (21.0-51.0); %Monocytes 7.3 % (0.0-10.0); %Neutrophils 63.5 % (42.0-75.0); Hemoglobin 9.9 g/dL (12.0-16.0); Mean Corpuscular HGB CONC 31.2 g/dL (32.0-36.0); Mean Corpuscular Hemoglobin 28.9 pg (27.0-31.0); Mean Corpuscular Volume 92.6 fL (78.0-98.0); Mean Platelet Volume 8.2 fL (7.4-10.4); Platelet Count 342 thou/uL (130-400); RBC Distribution Width 14.1 % (11.5-14.5); Red Blood Cell (RBC) Count 3.42 mill/uL (4.20-5.40); White Blood Cell (WBC) Count 9.3 thou/uL (4.8-10.8)
[2018-07-01 05:16] LABS: ALT (SGPT) 11 U/L (8-55); AST (SGOT) 12 U/L (5-34); Albumin 3.5 g/dL (3.4-4.8); Alkaline Phosphatase 128 U/L (40-150); Anion Gap 13 mmol/L (10-20); BUN (Urea Nitrogen) 38 mg/dL (9.8-20.1); Bilirubin, Total 0.4 mg/dL (0.2-1.2); Calc. Creatinine Clearance 83 mL/min (70-130); Calcium 8.8 mg/dL (7.8-10.44); Carbon Dioxide 28 mmol/L (23-31); Chloride 104 mmol/L (98-107); Estimated GFR-MDRD 45; Globulin 3.1 g/dL (2.4-3.5); Glucose 107 mg/dL (83-110); Potassium 3.6 mmol/L (3.5-5.1); Protein, Total 6.6 g/dL (6.0-8.3); Sodium 141 mmol/L (136-145)
[2018-07-01] MEDS: Acetaminophen 325 MG TAB PO PRN (08:54)
[2018-07-01] MEDS: Amlodipine 5 MG TAB PO SCH (08:54)
[2018-07-01] MEDS: predniSONE 20 MG TAB PO SCH (08:54)
[2018-07-01] MEDS: Allopurinol 100 MG TAB PO SCH (08:54)
[2018-07-01] MEDS: Atorvastatin Calcium 20 MG TAB PO SCH (08:54)
[2018-07-01] MEDS: Furosemide 40 MG TAB PO SCH (08:54)
[2018-07-01] MEDS: Enoxaparin Sodium 40 MG/0.4 ML SYRINGE SC SCH (08:55)
[2018-07-01] MEDS ORDERED: Sodium Chloride 0.9% 1,000 ML IV SCH (09:00)
[2018-07-01] MEDS ORDERED: Amlodipine 5 MG TAB PO SCH (12:00)
[2018-07-01 15:51] VITALS: BP 113/53; TEMP 97
[2018-07-02] MEDS ORDERED: Amlodipine 10 MG TAB PO SCH (09:00)
--- NOTE | 2018-07-03 13:52 | DIS ---
DATE OF ADMISSION: 06/27/2018 DATE OF DISCHARGE: 07/01/2018 CONSULTING PHYSICIANS: None. DISCHARGE DIAGNOSES: 1. Chronic diastolic congestive heart failure. 2. Morbid obesity. 3. Weakness. 4. Chronic O2 with severe deconditioning. 5. Hyperlipidemia. HOSPITAL COURSE: Ms. Richter is a 73-year-old woman with severe chronic diastolic CHF, who has been on oxygen at home with progressive deconditioning. She initially presented with weakness and increased shortness of breath with minimal exertion and at rest. The patient states she is normally short of breath with minimal exertion. However, it seems to be worse than her most recent baseline. Throughout her hospital stay, she did seem to improve. She states she has been advised in the past to undergo placement into a custodial or rehab; however, she did not feel inclined to do so. At this present time, the patient states she does feel that would be the best thing for her. Palliative care was consulted on admission and has been involved with her care. She did present with chest pain that occurred few days prior to admission and therefore did undergo workup including chest x-ray, which showed cardiomegaly and pulmonary venous congestion consistent with her history of CHF. There were no changes compared to previous studies. Cardiac markers were done and negative. She remains on telemetry during her stay. Her BNP was normal on admission. The patient remained asymptomatic throughout her entire hospital stay. She has been eating and drinking without any difficulties. Her difficulty breathing seems actually improved and she felt stronger and not as short of breath as she did on initial presentation, though she did continue to require oxygen as she normally does at home. The patient essentially remained in hospital without any complications while awaiting custodial placement. She was noted to have elevated blood pressures with a reading of 147/63 on day of discharge. The patient is on Norvasc 5 mg daily and this was increased to 10 mg daily. Of note, she was initiated on prednisone and advised to discontinue prednisone after 5 days. The patient on day of discharge denies having any nausea or vomiting. She has been tolerating regular diet. Denies having new headaches or dizziness. Denies any chest pain or palpitations. She does continue to have shortness of breath; however, this is slightly improved from initial presentation, perhaps associated with the prednisone she was on. Also with the decreased exertion required as compared to when she was at home. She did not require any more oxygen than she normally uses at home. She has not had any hemoptysis. No abdominal pain or cramping. No urinary symptoms or bowel changes. She remained afebrile throughout her hospital stay. PHYSICAL EXAMINATION: GENERAL: The patient appears comfortable and in no acute distress. VITAL SIGNS: Temperature 97, pulse 60, respirations 16, O2 saturation 94% on room air, BP 113/53. HEENT: Normocephalic and atraumatic. Pupils are equal, round, reactive to light. Sclerae are without icterus. Oropharynx is clear. NECK: Supple without lymphadenopathy. LUNGS: Clear to auscultation bilaterally without any wheezes or crackles. CARDIAC: Regular rate and rhythm. ABDOMEN: Soft, obese, nontender. No guarding or rigidity. EXTREMITIES: Without lower leg swelling or edema. SKIN: Without rash or jaundice. LABORATORY DATA: White blood count 9.3, hemoglobin 9.9, hematocrit 39.7, platelets 342. Sodium 141, potassium 3.6, BUN 38, creatinine 1.19. Renal function essentially stable. LFTs unremarkable. Urine culture with mixed skin and enteric jordin present, 06/29/2018. IMAGING DATA: Chest x-ray, 06/27/2018. Cardiomegaly and pulmonary venous congestion, evidence for mild congestive heart failure, stable compared to previous studies. PROCEDURES: None. DISCHARGE MEDICATIONS: Norvasc increased from 5 mg daily to 10 mg daily. CONDITION AT DISCHARGE: Stable. DIET: Heart healthy. ACTIVITY: Cardiopulmonary limits/fall risk. FOLLOWUP: Patient care to be managed by the primary care physician . DISPOSITION: The patient discharged to custodial on 07/01/2018. The patient's case was discussed with Dr. Morton who has also seen the patient and agrees with the plan as above. Job ID: [id number]
== END 2018-07-01 19:30 ==
LOC: ERS 16:49 → 2SW 18:46
PROVIDERS: ADMIT Emergency Medicine; ATTEND Emergency Medicine
DX: I11.0 Hypertensive heart disease with heart failure (principal); I50.32 Chronic diastolic (congestive) heart failure; R53.81 Other malaise; E78.5 Hyperlipidemia, unspecified; J96.21 Acute and chronic respiratory failure with hypoxia; I08.1 Rheumatic disorders of both mitral and tricuspid valves; E66.01 Morbid (severe) obesity due to excess calories; Z68.43 Body mass index [BMI] 50.0-59.9, adult; Z79.52 Long term (current) use of systemic steroids; Z79.899 Other long term (current) drug therapy; Z99.81 Dependence on supplemental oxygen
CPT/HCPCS: 71045; 80048; 80053 ×3; 82550; 82553; 83880; 84484 ×2; 85025 ×4; 87086; 93005; 94640; 96372 ×4; 97116 ×3; 97139 ×3; 97530; 97535; 99285; G0378 ×3; 36415; 81003; 81015; J1650; J7506; J7620